=== PATIENT | female | born 1970 | race Caucasian/White ===

== ENCOUNTER 2016-08-24 19:21 | Emergency (ER) | payer OTHER ==
[2016-08-24] MEDS ORDERED: cloNIDine 0.1 MG TAB ONE (21:17)
[2016-08-24] MEDS ORDERED: ONDANSETRON ODT 4 MG TAB ONE (21:18)
[2016-08-24] MEDS ORDERED: GABAPENTIN 300 MG CAP PO ONE (21:23)
[2016-08-24] MEDS ORDERED: ACETAMINOPHEN 325 MG TAB ONE (21:34)
== END 2016-08-24 21:40 | disposition home or self-care (01) ==
LOC: ER 19:21
DX: F11.23 Opioid dependence with withdrawal (principal); Z79.899 Other long term (current) drug therapy
CPT/HCPCS: 36415; 80053; 80307; 81001; 84439; 84443; 85025; 85610; 99283; G0480; 80320; 80329

== ENCOUNTER 2016-08-29 15:06 | Emergency (ER) | payer OTHER ==
[2016-08-29] MEDS ORDERED: SODIUM CHLORIDE 0.9% 1,000 ML ONE (17:46)
[2016-08-29] MEDS ORDERED: KETOROLAC 30 MG/ML VIAL ONE (18:52)
== END 2016-08-29 19:24 | disposition home or self-care (01) ==
LOC: ER 15:06
DX: R10.84 Generalized abdominal pain (principal); K59.00 Constipation, unspecified; R93.5 Abnormal findings on diagnostic imaging of other abdominal regions, including retroperitoneum; M89.9 Disorder of bone, unspecified
CPT/HCPCS: 36415; 74020; 80053; 81001; 85025; 87088; 96361; 96374; 99285; J1885